=== PATIENT | female | born 2000 | race African-American/Black ===

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

== ENCOUNTER 2019-01-10 10:20 | Emergency (ER) | payer OTHER ==
[~2019-01-10] VITALS: Ht 154.9 cm; Wt 68.1 kg
[~2019-01-10 10:20] MED LIST changes: +PROC5TAB34 PO
--- NOTE | 2019-01-10 11:02 | PHYS DOC ---
Past History Past Medical History: UTI Past Surgical History: No Surgical History Smoking: Non-smoker Alcohol Use: None Drug Use: None Adult General Chief Complaint Chief Complaint: ABDOMINAL PAIN IN HPI HPI Patient is a 18-year-old female presents with lower abdominal pain. She is by her report approximately 23 weeks with her last menstrual period being July 03, 2018. She fell into a "cube" furniture item at home. Approximately 30 minutes later she felt a gush of fluid but was not urinating. She denies any blood in the fluid. She she is 2 para 1001. She is uncertain as to her blood type. She does not recall having received any Rh immunoglobulin during her previous . No . Pain is mild. No radiation.[] Review of Systems Review of Systems Constitutional: Denies fever or chills [] Eyes: Denies change in visual acuity, redness, or eye pain [] HENT: Denies nasal congestion or sore throat [] Respiratory: Denies cough or shortness of breath [] Cardiovascular: No chest pain or palpitations[] GI: Denies nausea, vomiting, bloody stools or diarrhea, see history of present illness [] : Denies dysuria or hematuria [] Musculoskeletal: Denies back pain or joint pain [] Integument: Denies rash or skin lesions [] Neurologic: Denies headache, focal weakness or sensory changes [] Endocrine: Denies polyuria or polydipsia [] All other systems were reviewed and found to be within normal limits, except as documented in this note. Allergies Allergies Allergies Coded Allergies Type Severity Reaction Last Updated Verified clindamycin Allergy Severe Anaphylaxis 09/24/18 Yes Physical Exam Physical Exam Constitutional: Well developed, well nourished, no acute distress, non-toxic appearance. [] HENT: Normocephalic, atraumatic, bilateral external ears normal, oropharynx m oist, no oral exudates, nose normal. [] Eyes: PERRLA, EOMI, conjunctiva normal, no discharge. [] Neck: Normal range of motion, no tenderness, supple, no stridor. [] Cardiovascular:Heart rate regular rhythm, no murmur [] Lungs & Thorax: Bilateral breath sounds clear to auscultation [] Abdomen: Bowel sounds normal, soft, no tenderness, fundus is approximately a hand above the umbilicus. Mild right lower quadrant tenderness, no rebound, no guarding, no rigidity. heart tones are present. No pulsatile masses. [] Skin: Warm, dry, no erythema, no rash. [] Back: No tenderness, no CVA tenderness. [] Extremities: No tenderness, no cyanosis, no clubbing, ROM intact, no edema. [] Neurologic: Alert and oriented X 3, normal motor function, normal sensory function, no focal deficits noted. [] Psychologic: Affect normal, judgement normal, mood normal. [] Current Patient Data Vital Signs Vital Signs Date Time Temp Pulse Resp B/P (MAP) Pulse Ox O2 Delivery O2 Flow Rate FiO2 01/10/19 10:37 98.3 104 18 96 Room Air EKG EKG [] Radiology/Procedures Radiology/Procedures [] Course & Med Decision Making Course & Med Decision Making Pertinent Labs and Imaging studies reviewed. (See chart for details) ED course and medical decision making: Patient arrived, was placed in bed, and tolerated exam well. Utilizing a calculator, with a last menstrual period of July 03, 2018, she is 27 weeks 2 days by dates. Consultation was attempted with Dr. Brito, her primary [facility] physician at [facility]. Pelvic exam was held off because of a lack of sterile speculum. After and extended hold the time, the clinic informed us Dr. Brito was not available nor was anyone else available iron cutter. Contacted [facility], Dr. Lopez with [facility], graciously accepted the patient. IV fluids were started because her heart rate increased to the 130s. She was placed in the left lateral recumbent and heart rate improved. He was transferred in improved condition with all questions answered. Medical decision making: Patient with a potentially viable fetus. She is being transferred for higher level of [facility] care.[] Dragon Disclaimer Dragon Disclaimer This electronic medical record was generated, in whole or in part, using a voice recognition dictation system. Departure Departure: Impression: Primary Impression: Abdominal pain affecting Disposition: 05 TRANSFER OTHER Condition: IMPROVED Referrals: PCP,MERLYN (PCP) SAMMY LEAL DO Jan 10, 2019 11:02
[2019-01-10 11:35] VITALS: BP 143/76
[2019-01-10] MEDS ORDERED: IV NORMAL SALINE 1,000ML 1,000 ML IV ONE (11:45)
== END 2019-01-10 12:30 | disposition short-term general hospital (02) ==
LOC: ER 10:20
DX: O9A.212 Injury, poisoning and certain other consequences of external causes complicating pregnancy, second trimester (principal); R10.31 Right lower quadrant pain; O23.43 Unspecified infection of urinary tract in pregnancy, third trimester; Z3A.27 27 weeks gestation of pregnancy; Z88.1 Allergy status to other antibiotic agents
CPT/HCPCS: 99285-25; J7030

== ENCOUNTER 2019-04-20 18:28 | Emergency (ER) | payer OTHER ==
[2019-04-20] MEDS ORDERED: IV RINGERS SOLUTION,LACTATED 1,000 ML IV SCH (18:31)
--- NOTE | 2019-04-20 18:36 | PHYS DOC ---
Past History Past Medical History: UTI Past Surgical History: No Surgical History Smoking: Non-smoker Alcohol Use: None Drug Use: None Adult General Chief Complaint Chief Complaint: - Pt. reports 38 weeks gravid- Pt. did not come back to room, decided to leave and go to [facility] where her OB and planned delivery. HPI HPI Patient is a 18 year old female who presents with above hx and complaints 38 weeks gravid. Left before placement in room or vitals. Left from waiting room. Review of Systems Review of Systems Left before hx and exam Current Medications Current Medications See nursing Allergies Allergies Allergies Coded Allergies Type Severity Reaction Last Updated Verified clindamycin Allergy Severe Anaphylaxis 09/24/18 Yes Physical Exam Physical Exam Left before room placement and exam. EKG EKG [] Radiology/Procedures Radiology/Procedures [] Course & Med Decision Making Course & Med Decision Making Pertinent Labs and Imaging studies reviewed. (See chart for details) Left before exam or checked in fully. Impression: 1. Reports 38 weeks [] Dragon Disclaimer Dragon Disclaimer This electronic medical record was generated, in whole or in part, using a voice recognition dictation system. Departure Departure: Disposition: 01 HOME/RESIDENCE PRIOR TO ADM Condition: STABLE Referrals: PCP,UNKNOWN (PCP) ED ELIAS MD Apr 20, 2019 18:36
[2019-04-20] MEDS ORDERED: ONDANSETRON PF 4 MG/2 ML VIAL. IVP ONE (18:45)
[2019-04-20] MEDS ORDERED: FAMOTIDINE 20 MG/2 ML VIAL IVP ONE (18:45)
== END 2019-04-20 18:30 | disposition home or self-care (01) ==
LOC: ER 18:28
DX: O26.893 Other specified pregnancy related conditions, third trimester (principal); Z3A.38 38 weeks gestation of pregnancy; Z88.1 Allergy status to other antibiotic agents; Z53.21 Procedure and treatment not carried out due to patient leaving prior to being seen by health care provider

== ENCOUNTER 2020-12-14 01:55 | Emergency (ER) | payer OTHER ==
[~2020-12-14] VITALS: Ht 154.9 cm; Wt 74.1 kg
[2020-12-14] MEDS ORDERED: AMOX1TAB61 PO (02:12)
--- NOTE | 2020-12-14 02:13 | PHYS DOC ---
Past History Past Medical History: UTI Past Surgical History: No Surgical History Smoking: Non-smoker Alcohol Use: None Drug Use: None Adult General Chief Complaint Chief Complaint: HEADACHE HPI HPI Patient is a otherwise healthy 20-year-old female who presents with a chief complaint of right ear pain and headache over the past 12 hours, 7 out of 10, dull and achy in nature with mild nausea but no vomiting. Denies any recent traumas, travels, illnesses, known ill contacts, fevers, chest pain, shortness of breath, abdominal pain, nausea, vomiting. States she has had several ear infections as a child but has not had one in a couple years. Review of Systems Review of Systems Review of systems otherwise unremarkable except noted in HPI Allergies Allergies Allergies Coded Allergies Type Severity Reaction Last Updated Verified clindamycin Allergy Severe Anaphylaxis 09/24/18 Yes Physical Exam Physical Exam Constitutional: Well developed, well nourished, no acute distress, non-toxic appearance. [] HENT: Normocephalic, atraumatic, bilateral external ears normal, left tympanic membrane normal, right tympanic membrane erythematous, opaque and bulging oropharynx moist, no oral exudates, nose normal. [] Eyes: conjunctiva normal, no discharge. [] Neck: Normal range of motion, no tenderness, supple, no stridor. [] Cardiovascular: Sinus tachycardia Lungs & Thorax: Bilateral breath sounds clear to auscultation [] Extremities: No tenderness, ROM intact, no edema. [] Neurologic: Alert and oriented X 3, no focal deficits noted. [] Psychologic: Affect normal, judgement normal, mood normal. [] EKG EKG [] Radiology/Procedures Radiology/Procedures [] Heart Score C/O Chest Pain: No Risk Factors: Risk Factors: DM, Current or recent (<one month) smoker, HTN, HLP, family history of CAD, obesity. Risk Scores: Risk Factors: DM, Current or recent (<one month) smoker, HTN, HLP, family history of CAD, obesity. Course & Med Decision Making Course & Med Decision Making Patient is a 20-year-old female who presents with a chief complaint of right ear pain Vital signs notable for sinus tachycardia initially. Physical exam noted above. Started on Augmentin for otitis media. Given nausea medicine. Given pain medicine. [] Dragon Disclaimer Dragon Disclaimer This electronic medical record was generated, in whole or in part, using a voice recognition dictation system. Departure Departure: Impression: Primary Impression: Otitis media Disposition: HOME / SELF CARE / HOMELESS Condition: GOOD Referrals: PCP,UNKNOWN (PCP) ELI BLEVINS Patient Instructions: Otitis Media, Adult Additional Instructions: Thank you for coming into the emergency department tonight and allowing us to take care of you. Please read the attached information to go back over things w e discussed. Please take your antibiotics as prescribed and until gone. You can begin a Tylenol, ibuprofen and Benadryl regimen. Please call your primary care physician or the primary care physician at the number provided to set up a ER follow-up visit. Please come back to the ED with new or concerning symptoms as discussed. Scripts Amoxicillin/Potassium Clav (AUGMENTIN 875-125 TABLET) 1 Each Tablet 1 TAB PO BID for otitis media for 10 Days, #19 TAB 0 Refills Prov: JOANNE GRANT MD 12/14/20 JOANNE GRANT MD Dec 14, 2020 02:13
[2020-12-14] MEDS ORDERED: AMOXICILLIN/K CLAV 875/125MG TABLET. PO ONE (02:15)
[2020-12-14] MEDS ORDERED: ONDANSETRON ODT 4 MG TAB.RAPDIS PO ONE (02:15)
[2020-12-14] MEDS ORDERED: ACETAMINOPHEN 500 MG TABLET PO ONE (02:15)
[2020-12-14] MEDS ORDERED: MORPHINE SULFATE 4 MG/ML DISP.SYRIN. IM ONE (02:15)
[2020-12-14] MEDS ORDERED: IBUPROFEN 600 MG TABLET. PO ONE (02:15)
[2020-12-14 02:40] VITALS: BP 128/70
== END 2020-12-14 02:44 | disposition home or self-care (01) ==
LOC: ER 01:55
DX: H66.91 Otitis media, unspecified, right ear (principal); R51.9 Headache, unspecified; Z87.440 Personal history of urinary (tract) infections; Z88.1 Allergy status to other antibiotic agents
CPT/HCPCS: 81025; 96372; 99284; J2270; Q0162

== ENCOUNTER 2021-08-04 13:48 | Emergency (ER) | payer OTHER ==
[~2021-08-04] VITALS: Ht 154.9 cm; Wt 75.0 kg
[~2021-08-04 13:48] MED LIST changes: +AMOX1TAB61 PO; +DICY20TA PO; -DICY20TA3 PO
[2021-08-04 14:00] VITALS: BP 117/73
--- NOTE | 2021-08-04 14:37 | PHYS DOC ---
Past History Past Medical History: UTI Past Surgical History: No Surgical History Additional Past Surgical Histo: wisdom teeth Smoking: Non-smoker Alcohol Use: Occasionally Drug Use: None General Adult EDM: Chief Complaint: HEADACHE HPI: HPI: Patient is a 20-year-old female coming in for 3 days of right frontal headache. Patient states that she feels like it is throbbing and has light and sound sensitivity. Patient has a history of migraines that usually go away with [id number] medications. Not take anything today. Patient states she is also had slight upper respiratory symptoms. Denies any sinus pain, ear pressure, sore throat, neck pain. Patient states she has had an occasional cough and clear rhinorrhea. Review of Systems: Review of Systems: All other systems within normal limits except for as noted in the HPI Current Medications: Current Meds: Current Medications Medications (Trade) Dose Ordered Sig/Alison Start Time Stop Time Status Last Admin Dose Admin Dexamethasone (Decadron) 10 mg 1X ONCE 08/04/21 14:30 08/04/21 14:31 UNV Diphenhydramine HCl (Benadryl) 50 mg 1X ONCE 08/04/21 14:30 08/04/21 14:31 UNV Ketorolac Tromethamine (Toradol Im) 60 mg 1X ONCE 08/04/21 14:30 08/04/21 14:31 UNV Metoclopramide HCl (Reglan Vial) 10 mg 1X ONCE 08/04/21 14:30 08/04/21 14:31 UNV Allergies: Allergies: Allergies Coded Allergies Type Severity Reaction Last Updated Verified clindamycin Allergy Severe Anaphylaxis 09/24/18 Yes Physical Exam: PE: Constitutional: Well developed, well nourished, no acute distress, non-toxic appearance. [] HENT: Normocephalic, atraumatic, bilateral external ears normal, nose normal. [] Eyes: PERRLA, conjunctiva normal, no discharge. [] Neck: No rigidity, supple, no stridor. [] Cardiovascular: Regular rate and rhythm, brisk cap refill [] Lungs & Thorax: Non labored symmetric respirations, no tachypnea or respiratory distress [] Abdomen: Soft, nondistended. Skin: Warm, dry, no erythema, no rash. [] Back: Unremarkable Extremities: No deformities, range of motion grossly intact, no lower extremity edema [] Neurologic: Alert and oriented X 3, no focal deficits noted. [] Psychologic: Affect normal, judgement normal, mood normal. [] Current Patient Data: Vital Signs: Vital Signs Date Time Temp Pulse Resp B/P (MAP) Pulse Ox O2 Delivery O2 Flow Rate FiO2 08/04/21 14:00 99.1 78 18 117/73 (88) 98 EKG: EKG: [] Radiology/Procedures: Radiology/Procedures: [] Heart Score: C/O Chest Pain: No Risk Factors: Risk Factors: DM, Current or recent (<one month) smoker, HTN, HLP, family history of CAD, obesity. Risk Scores: Score 0 - 3: 2.5% MACE over next 6 weeks - Discharge Home Score 4 - 6: 20.3% MACE over next 6 weeks - Admit for Clinical Observation Score 7 - 10: 72.7% MACE over next 6 weeks - Early Invasive Strategies Course & Med Decision Making: Course & Med Decision Making Patient declining any work-up, states as her typical symptoms are just not going away acting normally would after taking [id number] medications Isaias Disclaimer: Isaias Disclaimer: This electronic medical record was generated, in whole or in part, using a voice recognition dictation system. Departure Departure: Impression: Primary Impression: Migraine Disposition: HOME / SELF CARE / HOMELESS Condition: STABLE Referrals: PCP,MERLYN (PCP) Patient Instructions: Migraine Headache, [id number] CHUCHO BOWERS MD Aug 04, 2021 14:37
[2021-08-04] MEDS: diphenhydrAMINE 50 MG/ML VIAL IM ONE (14:57)
[2021-08-04] MEDS: DEXAMETHASONE 4 MG TABLET PO ONE (15:00)
[2021-08-04] MEDS: KETOROLAC 60 MG/2 ML VIAL. IM ONE (15:00)
[2021-08-04] MEDS: METOCLOPRAMIDE HCL 10 MG/2 ML VIAL. IM ONE (15:00)
== END 2021-08-04 15:20 | disposition home or self-care (01) ==
LOC: ER 13:48
DX: G43.909 Migraine, unspecified, not intractable, without status migrainosus (principal); Z87.440 Personal history of urinary (tract) infections; Z88.1 Allergy status to other antibiotic agents
CPT/HCPCS: 96372; 99284; J1200; J1885; J2765; J8540